=== PATIENT | male | born 1960 ===

== ENCOUNTER 2017-09-12 12:43 | Emergency (ER) | payer OTHER ==
[2017-09-12] MEDS ORDERED: LORAZEPAM 2 MG/ML SOL IV ONE (13:06)
[2017-09-12] MEDS ORDERED: LORAZEPAM 2 MG/ML SOL ONE (13:10)
[2017-09-12 13:11] LABS: BASOPHILS % (AUTO) 2 % (0-3); EOSINOPHILS % (AUTO) 2 % (0-9); HEMATOCRIT 45 % (39-53); MEAN CORPUSCULAR HGB CONC 34.8 gm/dl (32.0-36.0); MEAN CORPUSCULAR VOLUME 97 fL (80-100); MONOCYTES % (AUTO) 12.9 % (0-12); NEUTROPHILS % (AUTO) 44.7 % (37-80)
[2017-09-12] MEDS ORDERED: SOLUMEDROL 125 MG/2 ML 125 MG/2 ML PDS IV ONE (13:13)
[2017-09-12 13:16] LABS: ALBUMIN 3.6 gm/dl (3.4-5.0); CALCIUM 8.6 mg/dl (8.5-10.1); POTASSIUM 4.5 mMol/L (3.5-5.1)
[2017-09-12] MEDS ORDERED: SOLUMEDROL 125 MG/2 ML 125 MG/2 ML PDS ONE (13:19)
[2017-09-12] MEDS ORDERED: SODIUM CHLORIDE 0.9% 1000ML 1,000 ML IV ONE (13:21)
[2017-09-12] MEDS ORDERED: THIAMINE 100 MG/ML 100 MG/ML SOL IV ONE (13:22)
[2017-09-12 14:05] VITALS: TEMP 98.6
[2017-09-12] MEDS ORDERED: THIAMINE 100 MG/ML 100 MG/ML SOL ONE (14:37)
[2017-09-12 14:57] VITALS: RESP 18
[2017-09-12 14:59] VITALS: BP 140/87; PULSE 92; O2SAT 95
== END 2017-09-12 15:07 | disposition home or self-care (01) ==
LOC: ED 12:43
DX: G51.0 Bell's palsy (principal); F10.120 Alcohol abuse with intoxication, uncomplicated; Y90.6 Blood alcohol level of 120-199 mg/100 ml; R29.703 NIHSS score 3; R40.2412 Glasgow coma scale score 13-15, at arrival to emergency department
CPT/HCPCS: 36415; 70450; 80053; 80307; 83735; 84484; 85025; 85610; 85730; 93005; 96365; 96366; 96374; 96375; 99070; 99285; 99291; J2060; J2930; J3411

== ENCOUNTER 2018-02-02 17:22 | Emergency (ER) | payer OTHER ==
[2018-02-02 17:33] VITALS: BP 122/89; TEMP 96.9
[2018-02-02] MEDS ORDERED: SODIUM CHLORIDE 0.9% 500 ML 500 ML IV ONE (17:49)
[2018-02-02] MEDS ORDERED: ALBUTEROL/IPRATROPIUM 1 VIAL SOL INH ONE (18:14)
[2018-02-02 18:17] LABS: BASOPHILS % (AUTO) 2 % (0-3); EOSINOPHILS % (AUTO) 1 % (0-9); HEMATOCRIT 43 % (39-53); HEMOGLOBIN 14.9 gm/dl (13.5-17.7); LYMPHOCYTES % (AUTO) 47.54 % (10-50); MEAN CORPUSCULAR HEMOGLOBIN 34.3 pg (27.0-32.0); MEAN CORPUSCULAR HGB CONC 34.3 gm/dl (32.0-36.0); MONOCYTES % (AUTO) 13.8 % (0-12)
[2018-02-02 18:19] LABS: MEAN CORPUSCULAR VOLUME 100 fL (80-100)
[2018-02-02] MEDS ORDERED: ALBUTEROL/IPRATROPIUM 1 VIAL SOL ONE (18:19)
[2018-02-02 18:21] LABS: ALBUMIN 3.7 gm/dl (3.4-5.0); BILIRUBIN,TOTAL 0.5 mg/dl (0.2-1.0); CALCIUM 8.6 mg/dl (8.5-10.1); CARBON DIOXIDE 23.3 mEq/L (21-32); CREATININE 0.99 mg/dl (0.80-1.30); POTASSIUM 3.7 mMol/L (3.5-5.1); TOTAL PROTEIN 8.2 gm/dl (6.4-8.2)
[2018-02-02 18:27] VITALS: PULSE 87; RESP 22; O2SAT 100
[2018-02-02 18:35] LABS: ANISOCYTOSIS MOD AMT
== END 2018-02-02 18:42 | disposition home or self-care (01) ==
LOC: ED 17:22
DX: J44.1 Chronic obstructive pulmonary disease with (acute) exacerbation (principal); F41.9 Anxiety disorder, unspecified; R06.02 Shortness of breath
CPT/HCPCS: 36415; 80053; 85025; 96365; 99282

== ENCOUNTER 2018-03-14 16:32 | Emergency (ER) | payer OTHER ==
[2018-03-14] MEDS ORDERED: ALBUTEROL/IPRATROPIUM 1 VIAL SOL INH ONE (16:51)
[2018-03-14 17:06] LABS: LACTIC ACID 1.9 mMol/L (0.0-2.0)
[2018-03-14 17:20] LABS: ALBUMIN 3.4 gm/dl (3.4-5.0); BILIRUBIN,TOTAL 0.7 mg/dl (0.2-1.0); CALCIUM 8.3 mg/dl (8.5-10.1); CARBON DIOXIDE 27.3 mEq/L (21-32); CREATININE 0.98 mg/dl (0.80-1.30); POTASSIUM 4.1 mMol/L (3.5-5.1); TOTAL PROTEIN 7.9 gm/dl (6.4-8.2)
[2018-03-14] MEDS ORDERED: ALBUTEROL/IPRATROPIUM 1 VIAL SOL ONE (17:21)
[2018-03-14] MEDS ORDERED: MORPHINE SULFATE 10 MG/ML SOL ONE ×2 (19:14→20:41)
[2018-03-14] MEDS ORDERED: SODIUM CHLORIDE 0.9% 1000ML 1,000 ML IV SCH (19:15)
[2018-03-14 19:16] LABS: HEMATOCRIT 49 % (39-53); HEMOGLOBIN 16.2 gm/dl (13.5-17.7); MEAN CORPUSCULAR HEMOGLOBIN 33.4 pg (27.0-32.0); MEAN CORPUSCULAR HGB CONC 33.3 gm/dl (32.0-36.0)
[2018-03-14] MEDS: MORPHINE SULFATE 10 MG/ML SOL IV PRN ×2 (19:16→20:43)
[2018-03-14 19:17] LABS: MEAN CORPUSCULAR VOLUME 100 fL (80-100)
[2018-03-14 19:18] LABS: BAND NEUTROPHILS % (MANUAL) 10 %; BASOPHILS % (MANUAL) 2 % (0-3); EOSINOPHILS % (MANUAL) 0 % (0-9); LYMPHOCYTES % (MANUAL) 32 % (10-50); MONOCYTES % (MANUAL) 19 % (0-12); NEUTROPHILS % (MANUAL) 37 % (37-80); NORMAL RBCS PRESENT
[2018-03-14 19:22] VITALS: RESP 20
[2018-03-14 20:48] VITALS: TEMP 97.3
[2018-03-14 20:49] LABS: APPEARANCE,URINE Clear; BILIRUBIN,URINE NEGATIVE (NEGATIVE); COLOR,URINE Yellow; GLUCOSE, URINE (UA) NEGATIVE (NEGATIVE); KETONES,URINE NEGATIVE (NEGATIVE); LEUKOCYTE ESTERASE ,URINE NEGATIVE (NEGATIVE); NITRATE,URINE NEGATIVE (NEGATIVE); OCCULT BLOOD,URINE NEGATIVE (NEG-TRACE)
[2018-03-14 20:55] LABS: BACTERIA 1+ (< 1+); CRYSTALS NEGATIVE (0-3 AVE/HPF); RBC,URINE 0-2 (0-3AV/HPF); WBC,URINE 0-2 (0-5AV/HPF)
[2018-03-14 21:03] VITALS: BP 162/105; PULSE 73; O2SAT 97
== END 2018-03-14 21:30 | disposition short-term general hospital (02) ==
LOC: ED 16:32
DX: R16.0 Hepatomegaly, not elsewhere classified (principal); R06.02 Shortness of breath; J44.9 Chronic obstructive pulmonary disease, unspecified; R11.2 Nausea with vomiting, unspecified; R50.9 Fever, unspecified; R53.1 Weakness
CPT/HCPCS: 36415; 71046; 74177; 80053; 81001; 82150; 85007; 85027; 87040; 96365; 96366; 96374; 99283; 99285; J2270; Q9967

== ENCOUNTER 2018-06-22 09:55 | Emergency (ER) | payer OTHER ==
[2018-06-22 10:09] VITALS: TEMP 97.3
[2018-06-22] MEDS ORDERED: LORAZEPAM 0.5 MG TAB PO ONE (10:18)
[2018-06-22] MEDS ORDERED: LORAZEPAM 0.5 MG TAB ONE (10:20)
[2018-06-22 11:05] VITALS: BP 104/97; PULSE 91; RESP 20; O2SAT 100
== END 2018-06-22 10:49 | disposition home or self-care (01) ==
LOC: ED 09:55
DX: F41.9 Anxiety disorder, unspecified (principal)
CPT/HCPCS: 99283; A9270-GY